=== PATIENT | male | born 1990 | race Caucasian/White ===

== ENCOUNTER 2017-03-22 21:45 | Inpatient (IN) | payer SELFPAY ==
[~2017-03-22] VITALS: Ht 180.3 cm; Wt 75.0 kg
[2017-03-22] MEDS ORDERED: NAPR250T2 PO (22:02)
[2017-03-22] MEDS ORDERED: CYCL10 PO (22:02)
[2017-03-22 22:03] LABS: BASOPHILS % (AUTO) 0.6 % (0.0-2.0); HEMATOCRIT 43.3 % (41-53); HEMOGLOBIN 14.6 g/dL (13.5-17.5); LYMPHOCYTES # (AUTO) 2.2 K/uL (1.0-4.8); LYMPHOCYTES % (AUTO) 36.7 % (22.0-44.0); MEAN CORPUSCULAR HGB CONC 33.7 G/dL (31.0-37.0); MEAN CORPUSCULAR VOLUME 89 fL (80-100); MONOCYTES # (AUTO) 0.5 K/uL (0.1-1.0); MONOCYTES % (AUTO) 7.9 % (2.0-9.0); NEUTROPHILS % (AUTO) 51.8 % (40.0-70.0); PLATELET COUNT (AUTO) 273 K/uL (150-450); RED BLOOD CELL COUNT(AUTO) 4.86 MIL/uL (4.50-5.90); RED CELL DISTRIBUTION WIDTH 13.6 % (11.5-14.5); WHITE BLOOD COUNT (AUTO) 5.9 K/uL (4.5-11.0)
[2017-03-22 22:15] LABS: ANION GAP 7 mmol/L (8-16); CALCIUM, TOTAL 9.8 mg/dL (8.8-10.5); CARBON DIOXIDE 30 mmol/L (22-29); CHLORIDE 105 mmol/L (98-107); CREATININE 1.28 mg/dL (0.60-1.30); GLOMERULAR FILTR. RATE CALC > 60 mL/min (>60); POTASSIUM 3.9 mmol/L (3.5-5.1); SODIUM SERUM 142 mmol/L (136-145); UREA NITROGEN, BLOOD 18 mg/dL (7-18)
[2017-03-22 22:20] LABS: ALANINE AMINOTRANSFERASE 21 U/L (12-78); ALBUMIN 4.5 g/dL (3.4-5.0); ASPARTATE AMINOTRANSFERASE 20 U/L (15-37); BILIRUBIN,TOTAL 0.7 mg/dL (0.1-1.0); TOTAL PROTEIN, SERUM 7.2 g/dL (6.4-8.2)
[2017-03-22 22:35] LABS: ACETAMINOPHEN < 2 mcg/mL (10-30)
[2017-03-22 22:51] LABS: SALICYLATE 3.9 mg/dL (2.8-20.0)
[2017-03-23 01:13] LABS: SALICYLATE 3.8 mg/dL (2.8-20.0)
[2017-03-23 01:22] LABS: ALANINE AMINOTRANSFERASE 18 U/L (12-78); ALBUMIN 4.2 g/dL (3.4-5.0); ANION GAP 11 mmol/L (8-16); ASPARTATE AMINOTRANSFERASE 20 U/L (15-37); BILIRUBIN,TOTAL 1.1 mg/dL (0.1-1.0); CALCIUM, TOTAL 9.6 mg/dL (8.8-10.5); CARBON DIOXIDE 27 mmol/L (22-29); CHLORIDE 106 mmol/L (98-107); CREATININE 1.34 mg/dL (0.60-1.30); GLOMERULAR FILTR. RATE CALC > 60 mL/min (>60); POTASSIUM 3.6 mmol/L (3.5-5.1); SODIUM SERUM 144 mmol/L (136-145); TOTAL PROTEIN, SERUM 7.1 g/dL (6.4-8.2); UREA NITROGEN, BLOOD 19 mg/dL (7-18)
[2017-03-23] MEDS ORDERED: HALOPERIDOL 5 MG TABLET PO PRN (02:00)
[2017-03-23] MEDS ORDERED: LORazepam 2 MG TABLET PO PRN (02:00)
[2017-03-23] MEDS ORDERED: ZOLPIDEM TARTRATE 10 MG TABLET PO PRN (02:00)
[2017-03-23 02:08] LABS: APPEARANCE,URINE TURBID (CLEAR); GLUCOSE, URINE (UA) NEGATIVE (NEGATIVE); KETONES,URINE NEGATIVE (NEGATIVE); LEUKOCYTE ESTERASE ,URINE NEGATIVE (NEGATIVE); OCCULT BLOOD,URINE NEGATIVE (NEGATIVE); PROTEIN,URINE NEGATIVE (NEGATIVE)
[2017-03-23 02:10] LABS: ADD UA MICROSCOPIC NO
[2017-03-23 02:18] LABS: CHOL/HDL RATIO 3.2 (4.2-7.3)
[2017-03-23 03:09] VITALS: BP 121/69
[2017-03-23 08:35] VITALS: BP 114/57
[2017-03-23] MEDS: SERTRALINE HCL 50 MG TABLET PO SCH (12:02)
[2017-03-23 17:01] VITALS: BP 117/79
[2017-03-24 00:11] VITALS: BP 112/63
[2017-03-24 09:08] VITALS: BP 119/52
[2017-03-24] MEDS: SERTRALINE HCL 50 MG TABLET PO SCH (09:18)
[2017-03-24 16:36] VITALS: BP 108/58
[2017-03-25 01:16] VITALS: BP 108/60
[2017-03-25 08:19] VITALS: BP 118/72
[2017-03-25] MEDS: SERTRALINE HCL 50 MG TABLET PO SCH (08:36)
[2017-03-25] MEDS ORDERED: SERT50TA12 PO (11:59)
== END 2017-03-25 15:33 | disposition home or self-care (01) | DRG 885 ==
LOC: EMS 21:47 → B2S 03-23 02:10
PROVIDERS: ADMIT Psychiatry & Neurology Child & Adolescent Psychiatry; ATTEND Psychiatry & Neurology Child & Adolescent Psychiatry
DX: F32.2 Major depressive disorder, single episode, severe without psychotic features (principal); R45.851 Suicidal ideations; F12.90 Cannabis use, unspecified, uncomplicated; F17.210 Nicotine dependence, cigarettes, uncomplicated; T39.312A Poisoning by propionic acid derivatives, intentional self-harm, initial encounter; S60.221A Contusion of right hand, initial encounter; T48.1X2A Poisoning by skeletal muscle relaxants [neuromuscular blocking agents], intentional self-harm, initial encounter; Y92.89 Other specified places as the place of occurrence of the external cause; Y93.89 Activity, other specified; Y99.8 Other external cause status
CPT/HCPCS: 93005; 99285; G0480; G0481